=== PATIENT | male | born 1970 ===

== ENCOUNTER → 2018-06-03 21:02 | Outpatient (REF) | payer OTHER, SELFPAY ==
[2018-06-03 21:28] LABS: Add Manual Diff / Slide Review NO; Basophils Absolute Auto 0 /uL (0-100); Basophils Percent Auto 0.5 % (0-2); Eosinophils Absolute Auto 300 /uL (0-450); Eosinophils Percent Auto 6.2 % (2-4); Hematocrit 41.4 % (41-53); Hemoglobin 13.4 g/dL (13.5-17.5); Lymphocytes Absolute Auto 1600 /uL (1100-4500); Lymphocytes Percent Auto 36.9 % (25-40); Mean Corpuscular HGB Conc 32.3 % (30-36); Mean Corpuscular Hemoglobin 25.3 PG (26-34); Mean Corpuscular Volume 78.3 fL (80-100); Monocytes Absolute Auto 900 /uL (0-900); Monocytes Percent Auto 20.6 % (3-14); Neutrophils Absolute Auto 1600 /uL (1500-7000); Neutrophils Percent Auto 35.8 % (50-75); Platelet Count 301 X10^3/uL (150-400); Red Blood Cell Count 5.29 X10^6/uL (4.5-5.9); Red Cell Distribution Width 17.1 % (11.6-14.8); White Blood Cell Count 4.3 X10^3/uL (4.5-11.0)
[2018-06-03 21:36] LABS: HEMOLYSIS < 15 (0-50); Iron 57 ug/dL (49-181)
[2018-06-03 21:48] LABS: Percent Iron Saturation 13 % (20-50); Total Iron Binding Capacity 432 ug/dL (261-462); Transferrin 319 mg/dL (206-381)
[2018-06-03 22:08] LABS: Ferritin 7.9 ng/mL (17.9-464)
== END ==
LOC: LAB 21:02
PROVIDERS: Visit Provider Family Medicine Addiction Medicine
DX: D64.9 Anemia, unspecified (principal)
CPT/HCPCS: 36415; 82728; 83540; 83550; 85025

== ENCOUNTER → 2018-07-29 22:52 | Outpatient (REF) | payer OTHER, SELFPAY ==
[2018-07-29 23:58] LABS: Add Manual Diff / Slide Review NO; Basophils Absolute Auto 0 /uL (0-100); Basophils Percent Auto 0.6 % (0-2); Eosinophils Absolute Auto 200 /uL (0-450); Eosinophils Percent Auto 5.9 % (2-4); Hematocrit 43.4 % (41-53); Hemoglobin 13.9 g/dL (13.5-17.5); Lymphocytes Absolute Auto 1100 /uL (1100-4500); Lymphocytes Percent Auto 29.9 % (25-40); Mean Corpuscular Volume 81.1 fL (80-100); Monocytes Absolute Auto 700 /uL (0-900); Neutrophils Absolute Auto 1700 /uL (1500-7000); Neutrophils Percent Auto 45.6 % (50-75); Platelet Count 256 X10^3/uL (150-400); Red Blood Cell Count 5.35 X10^6/uL (4.5-5.9); Red Cell Distribution Width 16.5 % (11.6-14.8); White Blood Cell Count 3.8 X10^3/uL (4.5-11.0)
[2018-07-30 03:17] LABS: Prostate Specific Antigen 0.362 ng/mL (0.10-4.00)
[2018-07-30 03:21] LABS: Ferritin 12.3 ng/mL (17.9-464)
== END ==
LOC: LAB 22:52
PROVIDERS: Visit Provider Family Medicine Addiction Medicine
DX: D64.9 Anemia, unspecified (principal); Z79.899 Other long term (current) drug therapy; Z79.890 Hormone replacement therapy; E29.1 Testicular hypofunction
CPT/HCPCS: 36415; 82728; 84153; 85025